=== PATIENT | female | born 1985 | race Hispanic/Latino ===

== ENCOUNTER 2017-06-21 21:09 | Emergency (ER) | payer SELFPAY ==
[~2017-06-21] VITALS: Ht 144.8 cm; Wt 75.0 kg
[2017-06-21 22:07] LABS: HEMATOCRIT 38.2 % (37.0-47.0); HEMOGLOBIN 12.5 g/dl (12.0-16.0); IMMATURE GRANULOCYTES 0.4 % (0.0-1.0); MEAN CELL VOLUME 86.8 fL CALC (80.0-100.0); MEAN CORPUSCULAR HGB 28.4 pG CALC (26.0-32.0); MEAN CORPUSCULAR HGB CONC 32.7 g/L CALC (32.0-36.0); NEUT# 5.81 thou/uL (2.00-7.15); RED BLOOD COUNT 4.4 mill/uL (4.20-5.60); RED CELL DISTRI WIDTH 12.9 % (11.5-15.5)
[2017-06-21 22:14] LABS: ALBUMIN 4.5 g/dL (3.2-5.0); ALKALINE PHOSPHATASE 134 u/l (38-126); ANION GAP 16 (6-22 (CALC)); BILIRUBIN, TOTAL 0.4 mg/dL (0.0-1.4); BUN 17 mg/dL (7-17); BUN/CREATININE RATIO 28 (12-20 (CALC)); CALCIUM 9.5 mg/dL (8.4-10.2); CARBON DIOXIDE 24 mmol/l (22-30); CHLORIDE 104 mmol/l (95-108); CREATININE 0.6 mg/dL (0.5-1.0); GFR > 60 ML/MIN (>=60 (CALC)); GFR FOR AFR.AMER. > 60 ML/MIN (>=60 (CALC)); GLUCOSE 92 mg/dL (65-105); POTASSIUM 4.1 mmol/l (3.5-5.1); SGOT/AST 34 u/l (14-36); SGPT/ALT 54 u/l (9-52); SODIUM 141 mmol/l (137-146); TOTAL PROTEIN 7.7 g/dL (6.3-8.2)
[2017-06-21 22:43] LABS: URINE BILIRUBIN - DIPSTICK NEGATIVE (NEGATIVE); URINE BLOOD DIPSTICK NEGATIVE (NEGATIVE); URINE CLARITY CLEAR; URINE COLOR YELLOW; URINE GLUCOSE - DIPSTICK NEGATIVE (NEGATIVE); URINE KETONE NEGATIVE (NEGATIVE); URINE LEUK ESTERASE NEGATIVE (NEGATIVE); URINE NITRITE - DIPSTICK NEGATIVE (Negative); URINE PROTEIN - DIPSTICK NEGATIVE (NEG-TRACE); URINE UROBILINOGEN - DIPSTICK 0.2 E.U./dL (0.2)
[2017-06-21 22:59] LABS: INFLUENZA A NONE DETECTED (NONE DETECT); INFLUENZA B NONE DETECTED (NONE DETECT)
[2017-06-22 14:41] VITALS: BP 130/76
== END 2017-06-22 14:41 | disposition home or self-care (01) | DRG 202 ==
LOC: ED 21:09
PROVIDERS: Emergency Medicine
DX: J45.901 Unspecified asthma with (acute) exacerbation (principal); E87.2 Acidosis; R10.9 Unspecified abdominal pain; K80.20 Calculus of gallbladder without cholecystitis without obstruction

== ENCOUNTER 2018-02-04 22:06 | Emergency (ER) | payer SELFPAY ==
[~2018-02-04] VITALS: Ht 144.8 cm; Wt 80.0 kg
[2018-02-04 23:02] LABS: URINE BILIRUBIN - DIPSTICK NEGATIVE (NEGATIVE); URINE BLOOD DIPSTICK NEGATIVE (NEGATIVE); URINE COLOR YELLOW; URINE GLUCOSE - DIPSTICK NEGATIVE (NEGATIVE); URINE KETONE TRACE mg/dL (NEGATIVE); URINE LEUK ESTERASE NEGATIVE (NEGATIVE); URINE NITRITE - DIPSTICK NEGATIVE (Negative); URINE PROTEIN - DIPSTICK NEGATIVE (NEG-TRACE); URINE UROBILINOGEN - DIPSTICK 0.2 E.U./dL (0.2)
[2018-02-04 23:04] LABS: HEMATOCRIT 37.8 % (37.0-47.0); HEMOGLOBIN 11.6 g/dl (12.0-16.0); IMMATURE GRANULOCYTES 0.2 % (0.0-1.0); MEAN CORPUSCULAR HGB CONC 30.7 g/L CALC (32.0-36.0); NEUT# 6.13 thou/uL (2.00-7.15); RED BLOOD COUNT 4.84 mill/uL (4.20-5.60); RED CELL DISTRI WIDTH 15.2 % (11.5-15.5); URINE CLARITY SL CLOUDY
[2018-02-04 23:05] LABS: MEAN CELL VOLUME 78.1 fL CALC (80.0-100.0)
[2018-02-04 23:10] LABS: ALBUMIN 4.8 g/dL (3.2-5.0); ALKALINE PHOSPHATASE 110 u/l (38-126); ANION GAP 21 (6-22 (CALC)); BILIRUBIN, TOTAL 0.4 mg/dL (0.0-1.4); BUN 13 mg/dL (7-17); BUN/CREATININE RATIO 20 (12-20 (CALC)); CARBON DIOXIDE 22 mmol/l (22-30); CHLORIDE 103 mmol/l (95-108); CREATININE 0.6 mg/dL (0.5-1.0); GFR > 60 ML/MIN (>=60 (CALC)); GFR FOR AFR.AMER. > 60 ML/MIN (>=60 (CALC)); LIPASE 43 u/l (23-300); POTASSIUM 3.9 mmol/l (3.5-5.1); SGOT/AST 24 u/l (14-36); SGPT/ALT 35 u/l (9-52); SODIUM 142 mmol/l (137-146); TOTAL PROTEIN 8.4 g/dL (6.3-8.2)
[2018-02-05] MEDS ORDERED: ONDANSETRON4 MG PO (00:43)
[2018-02-05] MEDS ORDERED: MOTRIN400 MG PO (00:43)
[2018-02-05 01:07] VITALS: BP 122/78
== END 2018-02-05 01:05 | disposition home or self-care (01) | DRG 392 ==
LOC: ED 22:06
PROVIDERS: Family Medicine
DX: R10.84 Generalized abdominal pain (principal)
CPT/HCPCS: Q9967

== ENCOUNTER 2018-02-09 23:02 | Emergency (ER) | payer SELFPAY ==
[~2018-02-09] VITALS: Ht 144.8 cm; Wt 77.0 kg
[~2018-02-09 23:02] MED LIST: MOTRIN400 MG PO; ONDANSETRON4 MG PO
[2018-02-10] LABS: HEMATOCRIT 36.1 % (37.0-47.0); HEMOGLOBIN 11.1 g/dl (12.0-16.0); IMMATURE GRANULOCYTES 0.2 % (0.0-1.0); MEAN CELL VOLUME 79.3 fL CALC (80.0-100.0); MEAN CORPUSCULAR HGB 24.4 pG CALC (26.0-32.0); MEAN CORPUSCULAR HGB CONC 30.7 g/L CALC (32.0-36.0); NEUT# 3.95 thou/uL (2.00-7.15); RED BLOOD COUNT 4.55 mill/uL (4.20-5.60); RED CELL DISTRI WIDTH 15.2 % (11.5-15.5)
[2018-02-10 00:07] LABS: URINE BILIRUBIN - DIPSTICK NEGATIVE (NEGATIVE); URINE BLOOD DIPSTICK NEGATIVE (NEGATIVE); URINE CLARITY HAZY; URINE COLOR YELLOW; URINE GLUCOSE - DIPSTICK NEGATIVE (NEGATIVE); URINE KETONE NEGATIVE (NEGATIVE); URINE LEUK ESTERASE NEGATIVE (NEGATIVE); URINE NITRITE - DIPSTICK NEGATIVE (Negative); URINE PROTEIN - DIPSTICK NEGATIVE (NEG-TRACE); URINE SPECIFIC GRAVITY 1.025; URINE UROBILINOGEN - DIPSTICK 0.2 E.U./dL (0.2)
[2018-02-10 00:17] LABS: ALBUMIN 4.1 g/dL (3.2-5.0); ALKALINE PHOSPHATASE 96 u/l (38-126); AMYLASE < 30 u/l (30-110); ANION GAP 17 (6-22 (CALC)); BILIRUBIN, TOTAL 0.3 mg/dL (0.0-1.4); BUN 9 mg/dL (7-17); BUN/CREATININE RATIO 15 (12-20 (CALC)); CARBON DIOXIDE 23 mmol/l (22-30); CHLORIDE 104 mmol/l (95-108); CREATININE 0.6 mg/dL (0.5-1.0); GFR > 60 ML/MIN (>=60 (CALC)); GFR FOR AFR.AMER. > 60 ML/MIN (>=60 (CALC)); LIPASE 29 u/l (23-300); POTASSIUM 3.7 mmol/l (3.5-5.1); SGOT/AST 18 u/l (14-36); SGPT/ALT 36 u/l (9-52); SODIUM 140 mmol/l (137-146); TOTAL PROTEIN 7.2 g/dL (6.3-8.2)
[2018-02-10] MEDS ORDERED: ULTRAM50 M1 PO (00:19)
[2018-02-10 00:43] VITALS: BP 114/62
== END 2018-02-10 01:00 | disposition home or self-care (01) | DRG 556 ==
LOC: ED 23:02
PROVIDERS: Emergency Medicine
DX: M79.1 Myalgia (principal); J45.909 Unspecified asthma, uncomplicated

== ENCOUNTER 2018-02-12 21:35 | Emergency (ER) | payer SELFPAY ==
[~2018-02-12] VITALS: Ht 144.8 cm; Wt 81.0 kg
[~2018-02-12 21:35] MED LIST changes: +ULTRAM50 M1 PO
[2018-02-12 22:31] LABS: INFLUENZA A NONE DETECTED (NONE DETECT); INFLUENZA B NONE DETECTED (NONE DETECT)
[2018-02-13] MEDS ORDERED: ALBUTEROL SUL0.083 % IN (00:18)
[2018-02-13 00:32] VITALS: BP 104/62
== END 2018-02-13 00:32 | disposition home or self-care (01) | DRG 203 ==
LOC: ED 21:35
PROVIDERS: Emergency Medicine
DX: J45.901 Unspecified asthma with (acute) exacerbation (principal); R05 Cough; R06.02 Shortness of breath

== ENCOUNTER 2019-06-11 02:39 | Emergency (ER) | payer SELFPAY ==
[~2019-06-11] VITALS: Ht 144.8 cm; Wt 76.5 kg
[~2019-06-11 02:39] MED LIST changes: +ALBUTEROL SUL0.083 % IN
[2019-06-11] MEDS ORDERED: AMOXICILLIN500 MG PO (03:12)
[2019-06-11] MEDS ORDERED: MOTRIN800 MG PO (03:12)
[2019-06-11 03:35] VITALS: BP 129/84
== END 2019-06-11 03:35 | disposition home or self-care (01) | DRG 159 ==
LOC: ED 02:39
DX: K04.7 Periapical abscess without sinus (principal); K02.9 Dental caries, unspecified

== ENCOUNTER 2019-12-08 | Emergency (ER) | payer SELFPAY ==
[~2019-12-08] MED LIST changes: +AMOXICILLIN500 MG PO; +MOTRIN800 MG PO
[2019-12-08 07:00] LABS: HEMATOCRIT 40.7 % (37.0-47.0); IMMATURE GRANULOCYTES 0.1 % (0.0-5.0); MEAN CORPUSCULAR HGB CONC 32.4 g/L CALC (32.0-36.0); NEUT# 3.77 thou/uL (2.00-7.15); RED BLOOD COUNT 4.55 mill/uL (4.20-5.60); RED CELL DISTRI WIDTH 11.9 % (11.5-15.5)
[2019-12-08 07:31] LABS: HEMOGLOBIN 13.2 g/dl (12.0-16.0)
[2019-12-08 07:32] LABS: MEAN CELL VOLUME 89.5 fL CALC (80.0-100.0)
[2019-12-08] MEDS ORDERED: ZOFRAN4 MG PO (08:43)
[2019-12-08] MEDS ORDERED: PROVENTIL0.083 % IN (08:43)
[2019-12-08] MEDS ORDERED: PREDNISONE20 MG PO (08:43)
[2019-12-08] MEDS ORDERED: PROVENTIL108 MCG/AC IN (08:43)
== END 2019-12-08 09:07 | disposition home or self-care (01) | DRG 203 ==
PROVIDERS: Family Medicine
DX: J45.909 Unspecified asthma, uncomplicated (principal)

== ENCOUNTER 2020-09-23 20:21 | Emergency (ER) | payer SELFPAY ==
[~2020-09-23] VITALS: Ht 144.8 cm; Wt 77.0 kg
[~2020-09-23 20:21] MED LIST changes: +PREDNISONE20 MG PO; +PROVENTIL0.083 % IN; +PROVENTIL108 MCG/AC IN; +ZOFRAN4 MG PO
[2020-09-23 21:02] LABS: HEMATOCRIT 38.6 % (37.0-47.0); HEMOGLOBIN 12.5 g/dl (12.0-16.0); IMMATURE GRANULOCYTES 0.2 % (0.0-5.0); MEAN CELL VOLUME 88.1 fL CALC (80.0-100.0); MEAN CORPUSCULAR HGB 28.5 pG CALC (26.0-32.0); MEAN CORPUSCULAR HGB CONC 32.4 g/dL CAL (32.0-36.0); NEUT# 3.72 thou/uL (2.00-7.15); RED BLOOD COUNT 4.38 mill/uL (4.20-5.60)
[2020-09-23 21:15] LABS: ALBUMIN 4.2 g/dL (3.2-5.0); ALKALINE PHOSPHATASE 103 u/l (38-126); ANION GAP 13 (6-22 (CALC)); BUN 16 mg/dL (7-17); BUN/CREATININE RATIO 31 (12-20 (CALC)); CARBON DIOXIDE 24 mmol/l (22-30); CHLORIDE 109 mmol/l (95-108); CREATININE 0.5 mg/dL (0.5-1.0); GFR > 60 ML/MIN (>=60 (CALC)); GFR FOR AFR.AMER. > 60 ML/MIN (>=60 (CALC)); POTASSIUM 3.3 mmol/l (3.5-5.1); SGOT/AST 28 u/l (14-36); SODIUM 142 mmol/l (137-146); TOTAL PROTEIN 7.2 g/dL (6.3-8.2)
[2020-09-23 21:18] LABS: BILIRUBIN, TOTAL 0.1 mg/dL (0.0-1.4)
[2020-09-23 21:21] LABS: URINE BILIRUBIN - DIPSTICK NEGATIVE (NEGATIVE); URINE BLOOD DIPSTICK NEGATIVE (NEGATIVE); URINE COLOR YELLOW; URINE GLUCOSE - DIPSTICK NEGATIVE (NEGATIVE); URINE KETONE NEGATIVE (NEGATIVE); URINE LEUK ESTERASE NEGATIVE (NEGATIVE); URINE PH 5.5 (4.5-8.0); URINE PROTEIN - DIPSTICK NEGATIVE (NEG-TRACE); URINE SPECIFIC GRAVITY >=1.030; URINE UROBILINOGEN - DIPSTICK 0.2 E.U./dL (0.2)
[2020-09-23 21:30] LABS: URINE BACTERIA MANY hpf; URINE NITRITE - DIPSTICK POSITIVE (Negative); URINE RBC 0-2 RBC/hpf (0-5); URINE SQUAMOUS EPITHELIAL CELL FEW EPI/hpf (0-FEW)
[2020-09-23 22:40] VITALS: BP 120/62
== END 2020-09-23 22:45 | disposition home or self-care (01) | DRG 203 ==
LOC: ED 20:21
PROVIDERS: Emergency Medicine
DX: J45.909 Unspecified asthma, uncomplicated (principal); R82.71 Bacteriuria; Z20.828 Contact with and (suspected) exposure to other viral communicable diseases

== ENCOUNTER 2020-12-06 18:59 | Emergency (ER) | payer SELFPAY ==
[~2020-12-06] VITALS: Ht 144.8 cm; Wt 78.0 kg
[2020-12-06 21:17] VITALS: BP 103/63
== END 2020-12-06 21:17 | disposition home or self-care (01) | DRG 563 ==
LOC: ED 18:59
DX: S93.401A Sprain of unspecified ligament of right ankle, initial encounter (principal); S93.601A Unspecified sprain of right foot, initial encounter; J45.909 Unspecified asthma, uncomplicated; W10.9XXA Fall (on) (from) unspecified stairs and steps, initial encounter; Y92.009 Unspecified place in unspecified non-institutional (private) residence as the place of occurrence of the external cause

== ENCOUNTER 2021-03-21 19:27 | Emergency (ER) | payer SELFPAY ==
[~2021-03-21] VITALS: Ht 144.8 cm; Wt 84.5 kg
[2021-03-21 21:08] LABS: HEMATOCRIT 42.5 % (37.0-47.0); HEMOGLOBIN 13.3 g/dl (12.0-16.0); IMMATURE GRANULOCYTES 0.3 % (0.0-5.0); MEAN CELL VOLUME 90.4 fL CALC (80.0-100.0); MEAN CORPUSCULAR HGB 28.3 pG CALC (26.0-32.0); MEAN CORPUSCULAR HGB CONC 31.3 g/dL CAL (32.0-36.0); NEUT# 6.43 thou/uL (2.00-7.15); RED BLOOD COUNT 4.7 mill/uL (4.20-5.60); RED CELL DISTRI WIDTH 11.9 % (11.5-15.5)
[2021-03-21 21:10] LABS: URINE BILIRUBIN - DIPSTICK NEGATIVE (NEGATIVE); URINE BLOOD DIPSTICK SMALL (NEGATIVE); URINE COLOR YELLOW; URINE GLUCOSE - DIPSTICK NEGATIVE (NEGATIVE); URINE KETONE TRACE mg/dL (NEGATIVE); URINE LEUK ESTERASE NEGATIVE (NEGATIVE); URINE PROTEIN - DIPSTICK NEGATIVE (NEG-TRACE); URINE SPECIFIC GRAVITY 1.025; URINE UROBILINOGEN - DIPSTICK 0.2 E.U./dL (0.2)
[2021-03-21 21:13] LABS: URINE NITRITE - DIPSTICK NEGATIVE (Negative)
[2021-03-21 21:24] LABS: URINE SQUAMOUS EPITHELIAL CELL FEW EPI/hpf (0-FEW)
[2021-03-21 21:26] LABS: ALBUMIN 4.4 g/dL (3.2-5.0); ALKALINE PHOSPHATASE 121 u/l (38-126); BUN 23 mg/dL (7-17); BUN/CREATININE RATIO 37 (12-20 (CALC)); CARBON DIOXIDE 26 mmol/l (22-30); CHLORIDE 101 mmol/l (95-108); CREATININE 0.6 mg/dL (0.5-1.0); GFR > 60 ML/MIN (>=60 (CALC)); GFR FOR AFR.AMER. > 60 ML/MIN (>=60 (CALC)); SGOT/AST 43 u/l (14-36); SODIUM 136 mmol/l (137-146); TOTAL PROTEIN 7.8 g/dL (6.3-8.2)
[2021-03-21 21:27] LABS: ANION GAP 13 (6-22 (CALC)); BILIRUBIN, TOTAL 0.2 mg/dL (0.0-1.4); POTASSIUM 4.4 mmol/l (3.5-5.1)
[2021-03-21 22:41] VITALS: BP 94/73
[2021-03-21] MEDS ORDERED: ZITHROMAX250 MG PO (22:49)
== END 2021-03-21 22:55 | disposition home or self-care (01) | DRG 206 ==
LOC: ED 19:27
PROVIDERS: Emergency Medicine
DX: J98.8 Other specified respiratory disorders (principal); J45.909 Unspecified asthma, uncomplicated; Z20.822 Contact with and (suspected) exposure to COVID-19

== ENCOUNTER 2021-05-21 16:20 | Emergency (ER) | payer SELFPAY ==
[~2021-05-21] VITALS: Ht 144.8 cm; Wt 65.0 kg
[~2021-05-21 16:20] MED LIST changes: +ZITHROMAX250 MG PO
[2021-05-21 16:49] LABS: HEMATOCRIT 40.8 % (37.0-47.0); HEMOGLOBIN 12.9 g/dl (12.0-16.0); IMMATURE GRANULOCYTES 0.2 % (0.0-5.0); MEAN CELL VOLUME 89.1 fL CALC (80.0-100.0); MEAN CORPUSCULAR HGB 28.2 pG CALC (26.0-32.0); MEAN CORPUSCULAR HGB CONC 31.6 g/dL CAL (32.0-36.0); NEUT# 5.32 thou/uL (2.00-7.15); RED BLOOD COUNT 4.58 mill/uL (4.20-5.60)
[2021-05-21 17:03] LABS: ALBUMIN 4.2 g/dL (3.2-5.0); ALKALINE PHOSPHATASE 115 u/l (38-126); ANION GAP 13 (6-22 (CALC)); BILIRUBIN, TOTAL 0.2 mg/dL (0.0-1.4); BUN 14 mg/dL (7-17); BUN/CREATININE RATIO 23 (12-20 (CALC)); CARBON DIOXIDE 24 mmol/l (22-30); CHLORIDE 104 mmol/l (95-108); CREATININE 0.6 mg/dL (0.5-1.0); GFR > 60 ML/MIN (>=60 (CALC)); GFR FOR AFR.AMER. > 60 ML/MIN (>=60 (CALC)); LIPASE 44 u/l (23-300); SGOT/AST 34 u/l (14-36); SODIUM 138 mmol/l (137-146); TOTAL PROTEIN 7.5 g/dL (6.3-8.2)
[2021-05-21 17:15] LABS: POTASSIUM 3.1 mmol/l (3.5-5.1)
[2021-05-21] MEDS ORDERED: PROVENTIL HFA IN (17:23)
[2021-05-21] MEDS ORDERED: PROVENTIL0.083 % IN (17:23)
[2021-05-21] MEDS ORDERED: MEDDOSEPAK PO (18:36)
[2021-05-21 18:56] VITALS: BP 111/67
== END 2021-05-21 19:00 | disposition home or self-care (01) | DRG 918 ==
LOC: ED 16:20
DX: T65.891A Toxic effect of other specified substances, accidental (unintentional), initial encounter (principal); J45.901 Unspecified asthma with (acute) exacerbation; Z20.822 Contact with and (suspected) exposure to COVID-19

== ENCOUNTER 2021-07-06 07:51 | Emergency (ER) | payer SELFPAY ==
[~2021-07-06] VITALS: Ht 144.8 cm; Wt 70.0 kg
[~2021-07-06 07:51] MED LIST changes: +MEDDOSEPAK PO; +PROVENTIL HFA IN
[2021-07-06] MEDS ORDERED: FLOVENT HFA44 MC1 PO (09:59)
[2021-07-06] MEDS ORDERED: PROAIR HFA108 MCG/AC PO (09:59)
[2021-07-06] MEDS ORDERED: PREDNISONE50 MG PO (09:59)
[2021-07-06] MEDS ORDERED: ALBUTEROL SUL0.083 % IN (09:59)
[2021-07-06 10:03] VITALS: BP 104/59
== END 2021-07-06 10:08 | disposition home or self-care (01) | DRG 203 ==
LOC: ED 07:51
DX: J45.901 Unspecified asthma with (acute) exacerbation (principal); Z20.822 Contact with and (suspected) exposure to COVID-19

== ENCOUNTER 2023-07-04 09:10 | Emergency (ER) | payer SELFPAY ==
[~2023-07-04] VITALS: Ht 144.8 cm; Wt 82.0 kg
[~2023-07-04 09:10] MED LIST changes: +FLOVENT HFA44 MC1 PO; +PREDNISONE50 MG PO; +PROAIR HFA108 MCG/AC PO
[2023-07-04] MEDS ORDERED: MEDROL4 M1 PO (10:04)
[2023-07-04] MEDS ORDERED: PEPCID20 MG PO (10:05)
[2023-07-04 10:12] VITALS: BP 120/67
== END 2023-07-04 10:16 | disposition home or self-care (01) | DRG 607 ==
LOC: ED 09:10
DX: L50.9 Urticaria, unspecified (principal); J45.909 Unspecified asthma, uncomplicated